=== PATIENT | male | born 1985 | race African-American/Black ===

== ENCOUNTER 2017-06-04 22:04 | Emergency (ER) | payer OTHER ==
[2017-06-04] MEDS ORDERED: Ketorolac Tromethamine 30 MG/ML VIAL ONE (22:54)
== END 2017-06-04 23:16 | disposition home or self-care (01) ==
LOC: ERS 22:04
DX: S02.5XXA Fracture of tooth (traumatic), initial encounter for closed fracture (principal); X58.XXXA Exposure to other specified factors, initial encounter
CPT/HCPCS: 96372; J1885